=== PATIENT | female | born 1975 | race American Indian/Alaskan Native ===

== ENCOUNTER 2018-11-08 22:33 | Outpatient (CLI) | payer MEDICAID ==
[2018-11-09] MEDS ORDERED: LACTATED RINGERS 1,000 ML IV ONE (02:21)
[2018-11-09 03:15] LABS: Bacteria,Urine 2+ /HPF (Negative); Bilirubin,Urine NEG (Negative); Blood,Urine NEG (Negative); Color,Urine Yellow (Yellow); Mucus,Urine FEW /HPF; Protein,Urine <15 mg/dL mg/dL (Negative); Urobilinogen,Urine < 2.0 mg/dL (<2.0)
--- NOTE | 2018-11-09 04:07 | Ultrasound Report ---
PROCEDURE: US OB BPP WO NON-STRESS TECHNIQUE: Transabdominal imaging was obtained for the biophysical profile. HISTORY: s/p fall COMPARISONS: None FINDINGS: For breathing movements, a score of 2 out of 2 was obtained. For movements, a score of 2 out of 2 was obtained. For posture and tone, a score of 2 out of 2 was obtained. Qualitative amniotic fluid volume, a score of 2 out of 2 was obtained. The heart rate is 131 BPM. IMPRESSION: Biophysical profile score of 8 out of 8. The heart rate is 131 BPM.. This document is electronically signed by Robert Mcclure MD., Nov 09 2018 04:05:32 AM ET
--- NOTE | 2018-11-09 04:10 | Ultrasound Report ---
PROCEDURE: US OB LIMITED TECHNIQUE: Routine transabdominal imaging was obtained the pelvis. HISTORY: s/p fall COMPARISONS: None FINDINGS: The fetus is in cephalic presentation. The heart rate is 131 BPM. The BIANKA is 13.4 cm which is n ormal. The placenta is anterior in position and is grade 1. There is no evidence of placental injury or abruption. There is possible thinning of the anterior wall of the uterus with the placenta is. The vessels appear slightly dilated. A placenta accreta cannot be excluded. IMPRESSION: No evidence of placental injury or abruption. Cephalic presentation. heart rate is 131 BPM. Normal BIANKA is 13.4 cm. Possible slight thinning of the anterior wall of the uterus. The placenta is. Slight prominent vessel s noted. Placenta accreta cannot be entirely ruled out. Follow-up study recommended.. This document is electronically signed by Robert Mcclure MD., Nov 09 2018 04:07:56 AM ET
[2018-11-09 04:48] VITALS: BP 114/56
== END 2018-11-09 04:55 | disposition home or self-care (01) ==
LOC: TRG 22:33
PROVIDERS: ATTEND Obstetrics & Gynecology
DX: O9A.213 Injury, poisoning and certain other consequences of external causes complicating pregnancy, third trimester (principal); S50.311A Abrasion of right elbow, initial encounter; S60.419A Abrasion of unspecified finger, initial encounter; F32.9 Major depressive disorder, single episode, unspecified; J45.909 Unspecified asthma, uncomplicated; Z3A.34 34 weeks gestation of pregnancy; Z87.891 Personal history of nicotine dependence; W10.9XXA Fall (on) (from) unspecified stairs and steps, initial encounter
CPT/HCPCS: 59025; 76815; 76819; 81001; 96360; J7120

== ENCOUNTER 2018-12-12 06:04 | Inpatient (IN) | payer MEDICAID ==
[2018-12-12 07:18] LABS: Hematocrit 38.9 % (30.3-42.9); Hemoglobin 13.1 gm/dl (10.1-14.3); Mean Corpuscular HGB Conc 34 % (30-34); Mean Corpuscular Volume 94 fl (79-97); Platelet Count 163 K/mm3 (140-440); Red Blood Count 4.13 M/mm3 (3.65-5.03); Red Cell Distribution Width 15.2 % (13.2-15.2)
[2018-12-12] MEDS ORDERED: REGLAN IV ONE (07:42)
[2018-12-12] MEDS ORDERED: BICITRA PO ONE (07:42)
[2018-12-12] MEDS ORDERED: PEPCID IV ONE (07:42)
[2018-12-12] MEDS ORDERED: ANCEF/STERILE WATER 2 GM/20 ML 2 GM/20 ML SYRINGE IV NR (08:00)
[2018-12-12] MEDS ORDERED: PITOCin/NS 20 UNIT/1000ML DRIP 20 UNITS/1,000 ML BAG IV SCH ×2 (08:00→14:00)
--- NOTE | 2018-12-12 08:17 | History and Physical Report ---
History of Present Illness Date of examination: 12/12/18 Date of admission: 12/12/18 06:04 Chief complaint: Scheduled Repeat C Section with BTL History of present illness: Pt is a 43yo BF EDC 12/19/18; EGA 39 0/7 weeks presents for Repeat C Section with BTL. She received care at [facility] since 11 weeks and co-managed by [facility] for AMA, hypertension and previous C Section x 2. A pelvic u/s done 11/08/18 showed a possible placenta accreta, but she could not tolerate the ordered MRI. records are available and GBS is negative. Past History Past Medical History: hypertension, lung disease, migraines, other (obesity; depression) Past Surgical History: cholecystectomy, section (x2) Family/Genetic History: diabetes, heart disease, hypertension, stroke, cancer Social history: no significant social history, single - Obstetrical History : 6 Medications and Allergies Allergies Allergy/AdvReac Type Severity Reaction Status Date / Time acetaminophen [From Percocet] Allergy Hives Verified 11/09/18 02:26 aspirin Allergy Hives Verified 11/09/18 02:26 codeine Allergy Nausea Verified 11/09/18 02:26 oxycodone [From Percocet] Allergy Hives Verified 11/09/18 02:26 Active Meds: Active Medications Oxytocin/Sodium Chloride (Pitocin/Ns 20 Unit/1000ml Drip) 20 units in 1,000 mls @ 0 mls/hr IV TITR JENNIFER Lactated Ringer's (Lactated Ringers) 1,000 mls @ 2,250 mls/hr IV PREOP JENNIFER Stop: 12/13/18 08:27 Cefazolin Sodium (Ancef/Sterile Water 2 Gm/20 Ml) 2 gm in 20 mls @ 80 mls/hr IV PREOP NR; Protocol Stop: 12/12/18 23:59 Review of Systems All systems: negative - Vital Signs Vital signs: Vital Signs Temp Pulse Resp BP Pulse Ox 98.3 F 98 H 18 135/73 97 12/12/18 06:40 12/12/18 06:40 12/12/18 06:40 12/12/18 06:40 12/12/18 06:40 Temp Pulse Resp BP Pulse Ox 98.3 F 84 18 135/73 94 12/12/18 06:40 12/12/18 07:33 12/12/18 06:40 12/12/18 06:40 12/12/18 07:33 - Physical Exam Breasts: Positive: deferred Cardiovascular: Regular rate Lungs: Positive: Clear to auscultation Abdomen: Positive: normal appearance Genitourinary (Female): Positive: normal external genitalia Uterus: Positive: enlarged Extremities: Positive: normal - Obstetrical FHR: category 1 Uterine Contraction Monitor Mode: External Uterine Contraction Pattern: Absent Results Result Diagrams: 12/12/18 06:40 All other labs normal. Ultrasound: report reviewed Assessment and Plan - Patient Problems (1) 39 weeks gestation of Onset Date: 12/12/18 Current Visit: Yes Status: Acute Plan to address problem: A: IUP @ 39 0/7 weeks Previous C Section x 2 Morbid obesity Chronic hypertension Desires permanent sterilization P: Admit to L&D for a Repeat C Section with BTL (2) Previous section complicating , antepartum condition or complication Onset Date: 12/12/18 Current Visit: Yes Status: Acute (3) Hypertension affecting in third trimester Onset Date: 12/12/18 Current Visit: Yes Status: Acute
[2018-12-12] MEDS: LACTATED RINGERS 1,000 ML IV SCH ×2 (08:51→11:10)
--- NOTE | 2018-12-12 08:51 | Anesthesia Consultation ---
Anesthesia Consult and Med Hx Date of service: 12/12/18 - Airway Anesthetic Teeth Evaluation: Good ROM Head & Neck: Adequate Mental/Hyoid Distance: Adequate Mallampati Class: Class II - Pulmonary Exam CTA: Yes - Pre-Operative Health Status ASA Pre-Surgery Classification: ASA2 - Pulmonary Hx Asthma: Yes (last asthma attack-08/2018) - Cardiovascular System Hx Hypertension: Yes - Central Nervous System Hx Seizures: No Hx Psychiatric Problems: Yes (clinical depression/PTSD) - Endocrine Hx Renal Disease: No Hx Hypothyroidism: No Hx Hyperthyroidism: No - Hematic Hx Anemia: No Hx Sickle Cell Disease: No - Other Systems Hx Alcohol Use: No
--- NOTE | 2018-12-12 08:51 | Anesthesia Day of Surgery ---
Anesthesia Day of Surgery - Day of Surgery Patient Examined: Yes Patient H&P Reviewed: Yes Patient is NPO: Yes (coffee w/milk @4:30 am)
[2018-12-12] MEDS ORDERED: ZOFRAN ONE (11:22)
[2018-12-12] MEDS ORDERED: SUBLIMAZE ONE (11:23)
[2018-12-12] MEDS ORDERED: ANCEF/STERILE WATER 2 GM/20 ML IV ONE (11:39)
[2018-12-12] MEDS ORDERED: TORADOL ONE (12:17)
[2018-12-12] MEDS ORDERED: BENADRYL ONE (12:17)
[2018-12-12] MEDS ORDERED: DILAUDID ONE (12:17)
--- NOTE | 2018-12-12 13:01 | Post Anesthesia Evaluation ---
- Post Anesthesia Evaluation Patient Participated: Yes Airway Patent: Yes Stable Respiratory Function: Yes Nausea/Vomiting: No Temp > 96.8F: Yes Pain Manageable: Yes Adequeate Hydration: Yes Anesthesia Complications: No Block Receding Appropriately: Yes Patient on Ventilator: No
[2018-12-12] MEDS ORDERED: NARCAN 0.4 MG/1 ML IV PRN ×2 (13:02→13:09)
[2018-12-12] MEDS ORDERED: PHENERGAN PR PRN (13:02)
[2018-12-12] MEDS ORDERED: PHENERGAN PO PRN (13:02)
[2018-12-12] MEDS ORDERED: MORPHINE IV PRN (13:02)
[2018-12-12] MEDS ORDERED: ZOFRAN IV PRN (13:02)
--- NOTE | 2018-12-12 13:02 | Operative Report ---
Operative Report Operative Report: Date of procedure: 12/12/2018 Pre-operative diagnosis: 1. Intrauterine at 39 0/7 weeks 2. Previo us 2 3. Chronic hypertension 4. Morbid obesity 5. Desires permanent sterilization Post-operative diagnosis: Same Procedure name(s): 1. Repeat low transverse section 2. Bilateral tubal ligation Surgeon: Kumar Jacinto MD Supervisor Print Line: None Anesthesia: Spinal anesthesia by Aquilino Davis CRNA EBL: 700 mL's Findings: A 3066 g female Apgars 8 at 1 minute 8 at 5 minutes. 2+ meconium fluid. Normal uterus. Normal tubes and ovaries bilaterally. Procedure: After the patient was prepped and draped in usual sterile fashion, and after satisfactory level of epidural anesthesia was obtained, the skin knife was used to make a transverse skin incision through the previous skin scars. The incision was excised down to layer of the fascia, which was nicked in the midline and extended laterally using the Bovie cautery. The rectus muscles were dissected off the rectus fascia both superiorly and inferiorly. The rectus bellies in the midline, and the peritoneum was entered under direct visualization. The peritoneal incision was extended superiorly and inferiorly. A bladder flap was created and the bladder blade was then placed. The uterus was scored in a curvilinear linear fashion, entered in the midline revealing 2+ meconium amniotic fluid. The 's head was delivered onto the surgical field, and the oropharynx and nasopharynx were bulb suctioned. The rest of the 's body was delivered, cord was doubly clamped and cut and the was handed to the waiting respiratory team. The placenta was manually removed from the uterus, and the uterus removed from its normal anatomical position. After gentle uterine lavage, the incision was inspected and found to be without extensions. It was then closed in 2 layers using 0 Vicryl suture in a running interlocking fashion, the second layer imbricating the first. At this point, attention was turned to the tubal ligation. First the right fallopian tube was grasped using the Orland, and after identifying the fimbriated end the right tube the Filshie clip was applied to the proximal portion of the tube. The same procedure was performed on the left fallopian tube. The tube was grasped using a Ashley, after first identifying the fimbriated end of the left fallopian tube, the Filshie clip was applied to the proximal portion of the tube. After good hemostasis was achieved, copious amounts or irrigation was performed, and the gutters were suctioned free of blood and blood clots. The Tisseel sealant was sprayed across the uterine incision. The uterus was then returned to its normal anatomical position, and after excellent hemostasis assured, the peritoneum was re-approximated using 3-0 Vicryl suture in a running interlocking fashion, and then the rectus muscles were re-approximated using 3-0 Vicryl suture in a [id number] configuration. The fascia was then re-approximated using 0 Vicryl suture in running interlocking fashion. The subcutaneous layer was made hemostatic using Bovie cautery, the Tisseel sealant was sprayed across the fascial incision and the skin edges re-approximated using 4-0 Vicryl suture in a sub-cuticular fashion. Patient tolerated the procedure well was transported to recovery in stable condition.
[2018-12-12] MEDS ORDERED: TUCKS PAD TP PRN (13:09)
[2018-12-12] MEDS ORDERED: LANSINOH TP PRN (13:09)
[2018-12-12] MEDS ORDERED: SENOKOT PO PRN (13:09)
[2018-12-12] MEDS ORDERED: TYLENOL PO PRN (13:09)
[2018-12-12] MEDS ORDERED: SODIUM CHLORIDE FLUSH SYRINGE 10 ML IV NR ×2 (14:00)
[2018-12-12] MEDS ORDERED: D5LR 1,000 ML IV SCH (14:00)
[2018-12-12] MEDS: DILAUDID IV PRN ×2 (15:16→23:11)
[2018-12-12] MEDS: TORADOL IV PRN (20:09)
[2018-12-12] MEDS: ANCEF/NS 1 GM/50 ML 1 GM/50 ML BAG IV SCH (20:11)
[2018-12-13 00:53] LABS: Hematocrit 36.2 % (30.3-42.9); Hemoglobin 12.2 gm/dl (10.1-14.3)
[2018-12-13] MEDS: ANCEF/NS 1 GM/50 ML 1 GM/50 ML BAG IV SCH (04:55)
[2018-12-13] MEDS: TORADOL IV PRN (04:55)
[2018-12-13] MEDS: NORMODYNE PO SCH ×3 (05:47→17:22)
[2018-12-13] MEDS ORDERED: BOOSTRIX IM ONE (06:00)
[2018-12-13] MEDS ORDERED: M-M-R II VACCINE SUB-Q ONE (06:00)
--- NOTE | 2018-12-13 09:47 | Progress Note ---
Assessment and Plan - Patient Problems (1) 39 weeks gestation of Onset Date: 12/12/18 Current Visit: Yes Status: Acute (2) Previous section complicating , antepartum condition or complication Onset Date: 12/12/18 Current Visit: Yes Status: Resolved (3) Hypertension affecting in third trimester Onset Date: 12/12/18 Current Visit: Yes Status: Resolved (4) Status post section Onset Date: 12/13/18 Current Visit: Yes Status: Resolved Plan to address problem: A: S/P Repeat C Section with BTL - POD #1 Doing well P: Continue RPOC Anticipate discharge in 24-48hrs Subjective - Subjective Date of service: 12/13/18 Principal diagnosis: s/p Repeat C Section with BTL - POD #1 Interval history: Pt is feeling well without complaints. Bleeding improved. Patient reports: appetite normal, voiding normally, pain well controlled, ambulating normally, no dizzy ambulation, no flatus, no nauseated [place]: doing well, nursing well Objective - Vital Signs Latest vital signs: Vital Signs Temp Pulse Resp BP BP Pulse Ox 12/13/18 08:42 98.3 F 65 18 124/68 98 12/13/18 05:47 94 H 107/55 12/13/18 04:55 18 12/13/18 04:31 98.0 F 79 18 133/70 96 12/13/18 00:12 98.0 F 80 20 128/62 95 12/12/18 23:11 18 12/12/18 20:09 18 12/12/18 19:50 98.0 F 94 H 20 107/55 97 12/12/18 15:25 98.4 F 77 18 122/78 99 12/12/18 14:15 98.8 F 88 24 147/84 96 12/12/18 14:00 65 16 159/81 97 12/12/18 13:45 64 17 154/70 98 12/12/18 13:30 66 17 149/77 96 12/12/18 13:15 65 15 144/80 97 12/12/18 13:10 60 15 148/71 97 12/12/18 13:06 66 15 156/77 97 12/12/18 12:57 98.2 F 79 19 134/53 97 Intake and Output 12/12/18 12/13/18 12/13/18 22:59 06:59 14:59 Intake Total 650 480 120 Output Total 550 900 Balance 100 -420 120 Intake: IV 50 ANCEF/NS 1 GM/50 ML 1 gm 50 In 50 ml @ 100 mls/hr IV [facility] Rx#:[id number] Oral 500 120 Intake, Free Water 100 480 Output: Urine 550 900 Indwelling Catheter 350 100 Uretheral (Muro) 200 400 Void 400 Other: Total, Intake Amount 200 120 Total, Output Amount 200 400 # Voids Indwelling Catheter 1 Estimated Blood Loss 700 - Exam Breasts: Present: deferred Abdomen: Present: normal appearance, soft Uterus: Present: normal, firm, fundal height below umbilicus Incision: Present: normal, dry, intact, dressed - Labs Labs: Abnormal lab results 12/12/18 Range/Units 06:40 Crossmatch See Detail Laboratory Tests 12/12/18 12/12/18 12/12/18 06:40 06:40 06:40 WBC 4.5 RBC 4.13 Hgb 13.1 Hct 38.9 MCV 94 MCH 32 MCHC 34 RDW 15.2 Plt Count 163 RPR Nonreactive Blood Type A POSITIVE Antibody Screen Negative Crossmatch See Detail 12/13/18 00:40 WBC RBC Hgb 12.2 Hct 36.2 MCV MCH MCHC RDW Plt Count RPR Blood Type Antibody Screen Crossmatch
[2018-12-13] MEDS: FEOSOL PO SCH (10:16)
[2018-12-13] MEDS: PRENATAL VITAMIN PO SCH (10:33)
[2018-12-13] MEDS: IBUPROFEN PO PRN ×2 (10:33→16:17)
[2018-12-13] MEDS: NORCO 5/325 PO PRN ×3 (10:47→22:44)
[2018-12-14] MEDS: NORCO 5/325 PO PRN ×3 (03:40→17:23)
[2018-12-14] MEDS: NORMODYNE PO SCH ×3 (03:40→22:23)
[2018-12-14] MEDS: MILK OF MAGNESIA PO PRN ×2 (03:46→19:02)
[2018-12-14] MEDS: IBUPROFEN PO PRN ×2 (07:57→17:26)
--- NOTE | 2018-12-14 09:15 | Progress Note ---
Assessment and Plan - Patient Problems (1) 39 weeks gestation of Onset Date: 12/12/18 Current Visit: Yes Status: Acute (2) Previous section complicating , antepartum condition or complication Onset Date: 12/12/18 Current Visit: Yes Status: Resolved (3) Hypertension affecting in third trimester Onset Date: 12/12/18 Current Visit: Yes Status: Resolved (4) Status post section Onset Date: 12/13/18 Current Visit: Yes Status: Resolved Plan to address problem: A: S/P Repeat C Section with BTL - POD #2 Doing well P: Encourage ambulation May go home tomorrow. Subjective - Subjective Date of service: 12/14/18 Principal diagnosis: s/p Repeat C Section with BTL - POD #2 Interval history: Pt is feeling well without complaints. She is tolerating a reg diet without nausea or vomiting, but states she has not passed gas yet. Patient reports: appetite normal, voiding normally, pain well controlled, ambulating normally, no dizzy ambulation, no flatus, no nauseated : doing well, nursing well Objective - Vital Signs Latest vital signs: Vital Signs Temp Pulse Resp BP BP Pulse Ox 12/14/18 03:40 82 18 132/70 12/13/18 23:25 98.5 F 89 20 128/68 100 12/13/18 22:44 18 12/13/18 17:22 68 153/56 12/13/18 17:11 98.2 F 89 16 153/56 97 12/13/18 14:55 79 136/75 12/13/18 12:31 98.0 F 85 16 125/65 95 12/13/18 10:46 68 124/68 Intake and Output 12/13/18 12/14/18 12/14/18 22:59 06:59 14:59 Intake Total 240 Balance 240 Intake: Oral 240 Other: Total, Intake Amount 240 # Voids Void 1 1 - Exam Abdomen: Present: normal appearance, soft Uterus: Present: normal, firm, fundal height below umbilicus Extremities: Present: normal Incision: Present: normal, dry, intact, dressed
[2018-12-14] MEDS: FEOSOL PO SCH (10:47)
[2018-12-14] MEDS: PRENATAL VITAMIN PO SCH (10:47)
[2018-12-14] MEDS: MYLICON PO PRN (19:01)
[2018-12-15] MEDS: IBUPROFEN PO PRN (05:28)
[2018-12-15] MEDS: NORCO 5/325 PO PRN (05:28)
[2018-12-15] MEDS: MILK OF MAGNESIA PO PRN (05:33)
[2018-12-15] MEDS: MYLICON PO PRN (07:59)
[2018-12-15] MEDS: FEOSOL PO SCH (09:30)
[2018-12-15] MEDS: NORMODYNE PO SCH (09:30)
[2018-12-15] MEDS: PRENATAL VITAMIN PO SCH (09:31)
--- NOTE | 2018-12-15 10:11 | Progress Note ---
Assessment and Plan - Patient Problems (1) 39 weeks gestation of Onset Date: 12/12/18 Current Visit: Yes Status: Acute (2) Previous section complicating , antepartum condition or complication Onset Date: 12/12/18 Current Visit: Yes Status: Resolved (3) Hypertension affecting in third trimester Onset Date: 12/12/18 Current Visit: Yes Status: Resolved (4) Status post section Onset Date: 12/13/18 Current Visit: Yes Status: Resolved Plan to address problem: A: S/P Repeat C Section with BTL - POD #3 Doing well P: May go home today Subjective - Subjective Date of service: 12/15/18 Principal diagnosis: s/p Repeat C Section with BTL - POD #3 Interval history: Pt is feeling well without complaints. She is tolerating a reg diet without nausea or vomiting, ambulating and voiding without difficulty. Patient reports: appetite normal, voiding normally, pain well controlled, flatus, bowel movement, ambulating normally, no dizzy ambulation, no nauseated [place]: doing well, nursing well Objective - Vital Signs Latest vital signs: Vital Signs Temp Pulse Resp BP BP Pulse Ox 12/15/18 09:30 64 139/62 12/15/18 07:57 97.7 F 64 15 139/62 98 12/15/18 06:28 18 12/15/18 05:28 18 12/15/18 00:00 98.2 F 64 18 128/63 99 12/14/18 22:23 76 122/53 12/14/18 19:00 18 12/14/18 10:47 90 122/70 Intake and Output 12/14/18 12/15/18 12/15/18 22:59 06:59 14:59 Intake Total 120 360 240 Balance 120 360 240 Intake: Oral 120 240 240 Intake, Free Water 120 Other: Total, Intake Amount 120 240 240 # Voids Void 1 1 - Exam Abdomen: Present: normal appearance, soft Uterus: Present: normal, firm, fundal height below umbilicus Extremities: Present: normal Incision: Present: normal, dry, intact - Labs Labs: Abnormal lab results 12/12/18 Range/Units 06:40 Crossmatch See Detail
--- NOTE | 2018-12-15 10:14 | Discharge Summary ---
Providers - Providers Date of Admission: 12/12/18 06:04 Date of discharge: 12/15/18 Attending physician: DONYA JACOBSON Primary care physician: DONYA JACOBSON Hospitalization Reason for admission: section, IUP at term, other (Previous c section; Chronic hypertension; Morbid obesity; Desires permanent sterilization) Delivery: Procedure: section, bilateral tubal ligation, repeat low transverse Episiotomy: none Laceration: none Incision: normal, dry, intact Other procedures: none complications: none Discharge diagnosis: IUP at term delivered baby: female Hospital course: Pt is a 43yo BF EDC 12/19/18; EGA 39 0/7 weeks who presented for a Repeat C Section with BTL. She received care at [facility] since 11 weeks and co-managed by [facility] for AMA, hypertension and previous C Section x 2. She underwent an uncomplicated Repeat C Section with BTL and tolerated the procedure well. By POD #3 she was tolerating a reg diet without nausea or vomiting, ambulating and voiding without difficulty. She was therefore discharged to home on POD #3 in stable condition. Condition at discharge: Good Disposition: DC-01 TO HOME OR SELFCARE - Discharge Diagnoses (1) 39 weeks gestation of Status: Resolved (2) Previous section complicating , antepartum condition or complication Status: Resolved (3) Hypertension affecting in third trimester Status: Resolved Plan - Discharge Medications Prescriptions: Ferrous Sulfate [Feosol 325 MG tab] 325 mg PO BID #60 tablet Labetalol [Labetalol 100mg TAB] 100 mg PO BID #60 tablet Ibuprofen [Motrin 800 MG tab] 800 mg PO Q6H PRN #30 tablet PRN Reason: Pain, Mild (1-3) HYDROcodone/APAP 5-325 [Dawson 5-325 mg TAB] 1 each PO Q6HR PRN #30 tablet PRN Reason: Pain, Moderate (4-6) Vit-Fe Fumar-FA [ Vitamin] 1 each PO QDAY #30 tablet - Provider Discharge Summary Activity: routine, no sex for 6 weeks, no heavy lifting 4 weeks, no strenuous exercise Diet: routine Instructions: routine Additional instructions: [] Smoking cessation referral if applicable(refer to patient education folder for contact #) [] Refer to [facility]'s [facility] Booklet Call your doctor immediately for: * Fever > 100.5 * Heavy vaginal bleeding ( >1 pad per hour) * Severe persistent headache * Shortness of breath * Reddened, hot, painful area to leg or breast * Drainage or odor from incision. * Keep incision clean and dry at all times and follow doctor's instructions regarding bathing/showering - Follow up plan Follow up: DONYA JACOBSON MD [Primary Care Provider] - 14 Days MICAELA WELCH CNM [Advanced Practice Nurse] - 14 Days
[2018-12-15 14:57] VITALS: BP 132/44
== END 2018-12-15 15:30 | disposition home or self-care (01) | DRG 765 ==
LOC: APU 06:04 → OB 14:46
PROVIDERS: ADMIT Obstetrics & Gynecology; ATTEND Obstetrics & Gynecology
PROC: 10D00Z1 Extraction of Products of Conception, Low, Open Approach (ICD-10-PCS; principal; 2018-12-12)
PROC: 0UL70CZ Occlusion of Bilateral Fallopian Tubes with Extraluminal Device, Open Approach (ICD-10-PCS; 2018-12-12)
DX: O34.211 Maternal care for low transverse scar from previous cesarean delivery (principal); O99.354 Diseases of the nervous system complicating childbirth; O10.92 Unspecified pre-existing hypertension complicating childbirth; O99.214 Obesity complicating childbirth; O77.0 Labor and delivery complicated by meconium in amniotic fluid; O99.52 Diseases of the respiratory system complicating childbirth; E66.01 Morbid (severe) obesity due to excess calories; G43.909 Migraine, unspecified, not intractable, without status migrainosus; J45.909 Unspecified asthma, uncomplicated; Z3A.39 39 weeks gestation of pregnancy; Z37.0 Single live birth
CPT/HCPCS: 36415; 85014; 85018; 85027; 86592; 86850; 86900; 86901; 86920; G0378; C9250; J0690; J1170; J1200; J1885; J2405; J2590; J2765; J3010; J7120

== ENCOUNTER 2019-07-18 10:28 | Observation (INO) | payer MEDICAID ==
[2019-07-13 13:56] LABS: Eosinophils # (Auto) 0.1 K/mm3 (0.0-0.4); Eosinophils % (Auto) 2.1 % (0.0-4.3); Hematocrit 43.7 % (30.3-42.9); Hemoglobin 14.8 gm/dl (10.1-14.3); Lymphocytes # (Auto) 1.1 K/mm3 (1.2-5.4); Lymphocytes % (Auto) 23.6 % (13.4-35.0); Mean Corpuscular HGB Conc 34 % (30-34); Mean Corpuscular Volume 89 fl (79-97); Monocytes # (Auto) 0.2 K/mm3 (0.0-0.8); Monocytes % (Auto) 3.4 % (0.0-7.3); Platelet Count 215 K/mm3 (140-440); Red Blood Count 4.94 M/mm3 (3.65-5.03); Red Cell Distribution Width 13.2 % (13.2-15.2)
--- NOTE | 2019-07-13 14:10 | Anesthesia Consultation ---
Anesthesia Consult and Med Hx Date of service: 07/13/19 - Airway Anesthetic Teeth Evaluation: Good, Crowns ROM Head & Neck: Adequate Mental/Hyoid Distance: Adequate Mallampati Class: Class II Intubation Access Assessment: Good - Pre-Operative Health Status ASA Pre-Surgery Classification: ASA2 Proposed Anesthetic Plan: General Nerve Block: TAP - Pulmonary Hx Smoking: Yes (former) Hx Asthma: Yes (Last treated 8 mos ago) COPD: No Hx Pneumonia: No - Cardiovascular System Hx Hypertension: Yes (Previously on meds, under control without meds now) Hx Cardia Arrhythmia: Yes (Hx SVT. Ablation in 2008) - Central Nervous System Hx Neuromuscular Disorder: Yes (Migraines) Hx Seizures: Yes (x2 years ago, never determined why) Hx Back Pain: Yes (DDD. Fibromyalgia) Hx Psychiatric Problems: Yes (Depression) - Gastrointestinal Hx Gastroesophageal Reflux Disease: Yes (+IBS) - Endocrine Hx Renal Disease: No Hx End Stage Renal Disease: No Hx Hypothyroidism: No Hx Hyperthyroidism: No - Hematic Hx Anemia: Yes (Past hx) Hx Sickle Cell Disease: No - Other Systems Hx Alcohol Use: No Hx Cancer: No - Additional Comments Anesthesia Medical History Comments: PONV. Last delivery ; Pt is
[~2019-07-18 10:28] MED LIST: GABAPENTIN 300 MG CAP PO NR; LACTATED RINGERS 1,000 ML IV SCH; LIDOCAINE MPF (2%) 20 MG/1 ML VIAL 5 ML ONE; MIDAZOLAM 2 MG/2 ML INJ IV NR; NEOMY 40 MG/POLYMYXIN B 200,000 UNITS/ML (GU) AMPULE IR ONE; ONDANSETRON 4 MG/2 ML INJ ONE; PROPOFOL 200 MG/20 ML VIAL IV ONE; SCOPOLAMINE TRANSDERMAL PATCH 72 HR TD NR; fentaNYL 100 MCG/2 ML INJ IV ONE; fentaNYL 100 MCG/2 ML INJ ONE
[2019-07-18] MEDS ORDERED: LIDOCAINE (1%) 10 MG/1 ML VIAL 20 ML MDV ONE (10:43)
[2019-07-18] MEDS ORDERED: BUPIVACAINE-EPINEPHRINE/PF 0.25%-1:200,000 (30 ML) VIAL INFILTRATI ONE (10:43)
[2019-07-18] MEDS ORDERED: dexAMETHasone 4 MG/ML VIAL ONE (10:43)
[2019-07-18] MEDS ORDERED: ONDANSETRON 4 MG/2 ML INJ ONE (10:52)
--- NOTE | 2019-07-18 11:07 | History and Physical Report ---
History of Present Illness Date of examination: 07/18/19 Chief complaint: Prolonged vaginal bleeding History of present illness: Pt is a 44yo BF LMP 06/25/19 presents for surgical evaluation and treatment of Adenomyosis. Pelvic u/s showed the uterus to measure 8 x 6 x 4.5cm with microcalcifications. She desires a Robotic Assisted Total Hysterectomy with ovarian conservation. Past History Past Medical History: asthma, hypertension Past Surgical History: cholecystectomy, section, D&C Family/Genetic History: none Social history: no significant social history, single. denies: smoking - Obstetrical History : 6 Medications and Allergies Allergies Allergy/AdvReac Type Severity Reaction Status Date / Time acetaminophen [From Percocet] Allergy Hives Verified 11/09/18 02:26 aspirin Allergy Hives Verified 11/09/18 02:26 codeine Allergy Nausea Verified 11/09/18 02:26 oxycodone [From Percocet] Allergy Hives Verified 11/09/18 02:26 Home Medications Medication Instructions Recorded Confirmed Last Taken Type Loratadine 1 tab PO DAILY 12/13/18 07/11/19 12/11/18 22:00 History Pantoprazole [Protonix] 40 mg PO DAILY 12/13/18 07/18/19 07/18/19 08:00 History Vitamin 1 tab PO DAILY 12/13/18 07/11/19 12/11/18 22:00 History Sertraline [Zoloft] 200 mg PO QDAY 12/13/18 07/18/19 07/17/19 09:00 History valACYclovir [Valtrex] 1 tab PO DAILY PRN 12/13/18 07/18/19 07/17/19 09:00 History Active Meds: Active Medications Gabapentin (Gabapentin) 600 mg PO PREOP NR Stop: 07/18/19 13:00 Lactated Ringer's (Lactated Ringers) 1,000 mls @ 100 mls/hr IV DIRECT JENNIFER Cefazolin Sodium (Ancef/Sterile Water 2 Gm/20 Ml) 2 gm in 20 mls @ 80 mls/hr IV PREOP NR; Protocol Midazolam HCl (Versed) 2 mg IV PREOP NR Stop: 07/18/19 23:59 Scopolamine (Transderm-Scop) 1 each TD PREOP NR Stop: 07/18/19 23:00 Review of Systems All systems: negative - Vital Signs Vital signs: Vital Signs Temp Pulse Resp BP Pulse Ox 98.3 F 90 20 144/65 99 07/13/19 13:30 07/13/19 13:30 07/13/19 13:30 07/13/19 13:30 07/13/19 13:30 Temp Pulse Resp BP Pulse Ox 98.3 F 90 20 144/65 99 07/13/19 13:30 07/13/19 13:30 07/13/19 13:30 07/13/19 13:30 07/13/19 13:30 - Physical Exam Breasts: Positive: deferred Cardiovascular: Regular rate Lungs: Positive: Clear to auscultation Abdomen: Positive: normal appearance Genitourinary (Female): Positive: normal external genitalia Vagina: Positive: normal moisture Uterus: Positive: normal size Extremities: Positive: normal Results Result Diagrams: 07/13/19 13:40 All other labs normal. Ultrasound: report reviewed Assessment and Plan - Patient Problems (1) Adenomyosis of uterus Onset Date: 07/18/19 Current Visit: Yes Status: Acute Plan to address problem: A: Adenomyosis P: Admit for a Robotic Assisted Total Hysterectomy with Bilateral Salpingectomy
[2019-07-18] MEDS ORDERED: fentaNYL 100 MCG/2 ML INJ ONE (11:13)
[2019-07-18] MEDS ORDERED: MAGNESIUM OXIDE 400 MG TAB PO SCH (11:13)
--- NOTE | 2019-07-18 11:15 | Anesthesia Day of Surgery ---
Anesthesia Day of Surgery - Day of Surgery Patient Examined: Yes Patient H&P Reviewed: Yes Patient is NPO: Yes
[2019-07-18] MEDS ORDERED: ACETAMINOPHEN 500 MG TAB PO SCH (11:18)
[2019-07-18] MEDS ORDERED: MAGNESIUM OXIDE 400 MG TAB PO ONE (11:20)
[2019-07-18] MEDS ORDERED: CELECOXIB 200 MG CAP ONE (11:21)
[2019-07-18] MEDS ORDERED: ROCURONIUM 50 MG/5 ML INJ IV ONE (11:48)
[2019-07-18] MEDS ORDERED: CELECOXIB 200 MG CAP PO NR (12:00)
[2019-07-18] MEDS ORDERED: ceFAZolin/Water 2 GM/20 ML 2 GM/20 ML SYRINGE IV NR (12:00)
[2019-07-18] MEDS ORDERED: ONDANSETRON 4 MG/2 ML INJ IV PRN (13:53)
[2019-07-18] MEDS ORDERED: HYDROcodone/ACETAMINOPHEN 5-325 MG TAB PO PRN (13:53)
[2019-07-18] MEDS ORDERED: MAGNESIUM HYDROXIDE (MOM) ORAL LIQD UDC PO PRN (13:53)
--- NOTE | 2019-07-18 13:53 | Operative Report ---
Operative Report Operative Report: Pre-operative diagnosis: 1. Adenomyosis 2. Menorrhagia Post-operative diagnosis: Same Procedure : 1. Robotic-assisted total hysterectomy 2. Bilateral salpingectomy Surgeon: Kumar Jacinto MD Utilization Coordinator: [employer] Anesthesia: MIKE Block followed by general endotracheal intubation EBL: <100 mL's Findings: A 10 -12 weeks size myomatous uterus. Fallopian tubes showed evidence of previous tubal ligation bilaterally and normal ovaries bilaterally. Procedure: After the patient was first correctly identified, she was prepped and draped in the usual sterile fashion and placed in the dorsolithotomy position. The bladder was first catheterized using Muro catheter and the speculum was placed in the vagina and the anterior lip of the cervix was grasped using a single-tooth tenaculum, and the small Vesicare cup was placed. The tenaculum and speculum was then removed from the vagina and attention was then turned to the abdomen. The skin knife was used to make a small incision approximately 5 cm above the umbilicus through which a 12 mm trocar was placed under direct visualization. After adequate amount of abdominal insufflation, visualization of the pelvic organs found the uterus to be enlarged, the fallopian tubes showed evidence of previous tubal ligation bilaterally with Filsche clips, and the ovaries were normal bilaterally. A right and left paramedian incision was made through which the 8 mm trochars were placed under direct visualization and a 5 mm trocar was placed in the right lower quadrant. The patient was then placed in steep Trendelenburg positioning and the robot was docked on the patient's left side. After all the robotic ports were connected and adequate functioning of the robotic arms were tested, the surgeon then proceeded to the console to begin the hysterectomy. First the left round ligament was grasped, cauterized and cut, the left utero- ovarian ligament was grasped, cauterized and cut, and the left fallopian tube also grasped, cauterized and cut along the mesosalpinx, thus freeing the left ovary from the left uterine sidewall. The same procedure was performed on the right. The right round ligament was grasped, cauterized and cut, the right utero-ovarian ligament was grasped, cauterized and cut, and the right fallopian tube also grasped, cauterized and cut along the mesosalpinx, thus freeing the right ovary from the right uterine sidewall. The bladder flap was taken down anteriorly and the uterine vessels were grasped, cauterized and cut bilaterally. The cardinal ligaments were sequentially grasped, cauterized and cut down to the level of the uterosacral ligaments. At this time the posterior colpotomy was performed over the Vcare cup, and the cervix was circumscribed beginning posteriorly and meeting anteriorly until the cervix was freed. The cervix, uterus and fallopian tubes were then removed through the vagina and sent to pathology. The vaginal cuff was then closed using 2-0 Vloc suture in a running fashion. Irrigation was then performed and after good hemostasis was achieved the procedure was considered complete. The Tisseel sealant was then sprayed across the vaginal cuff site, and after excellent hemostasis was assured, Interceed was placed across the vaginal cuff site. The abdominal pressure was reduced to 8 mmHg and excellent hemostasis was assured. All instruments were then removed from the abdominal cavity. Each incision was closed using 0 Vicryl suture in a [id number] configuration on the fascia followed by 4-0 Monocryl suture in a sub-cuticular fashion on the skin. Each incision was also infiltrated using 0.5% Marcaine solution. The vaginal pack was removed. The patient tolerated the procedure well and was transported to the recovery room in stable condition.
[2019-07-18] MEDS ORDERED: NEOMY 40 MG/POLYMYXIN B 200,000 UNITS/ML (GU) AMPULE IR ONE (13:55)
[2019-07-18] MEDS ORDERED: SODIUM CHLORIDE 0.9% IRR 1,500 ML BOTTLE IR ONE (13:55)
[2019-07-18] MEDS ORDERED: SODIUM CHLORIDE 0.9% IRRIG SOLN 2000 ML IR ONE (13:55)
[2019-07-18] MEDS ORDERED: D5W/LACTATED RINGERS 1,000 ML IV SCH (14:00)
[2019-07-18] MEDS: KETOROLAC 30 MG/1 ML INJ IV SCH ×2 (14:35→19:40)
[2019-07-18] MEDS: HYDROmorphone 1 MG/1 ML INJ IV PRN ×2 (14:51→15:00)
[2019-07-18] MEDS: HYDROmorphone 2 MG TAB PO PRN (16:44)
[2019-07-18] MEDS: ceFAZolin/NS 1 GM/50 ML 1 GM/50 ML BAG IV SCH (20:38)
[2019-07-19] MEDS: KETOROLAC 30 MG/1 ML INJ IV SCH ×2 (01:44→11:50)
[2019-07-19] MEDS: ceFAZolin/NS 1 GM/50 ML 1 GM/50 ML BAG IV SCH (03:33)
[2019-07-19] MEDS: HYDROmorphone 2 MG TAB PO PRN (05:26)
[2019-07-19 05:40] LABS: Hematocrit 39.9 % (30.3-42.9); Hemoglobin 13.5 gm/dl (10.1-14.3)
--- NOTE | 2019-07-19 09:45 | Progress Note ---
Assessment and Plan - Patient Problems (1) Adenomyosis of uterus Onset Date: 07/18/19 Current Visit: Yes Status: Resolved (2) Status post robot-assisted surgical procedure Onset Date: 07/19/19 Current Visit: Yes Status: Resolved Plan to address problem: A: S/P RATH - POD #1 Doing well P: May go home today. Subjective - Subjective Date of service: 07/19/19 Principal diagnosis: s/p RATH - POD #1 Interval history: Pt is s/p a Robotic Assisted Total Hysterectomy with Bilateral Salpingectomy, and feeling well. She is tolerating a reg diet without nausea or vomiting, ambulating and voiding without difficulty. Patient reports: appetite normal, voiding normally, pain well controlled, flatus, ambulating normally, no dizzy ambulation, no nauseated Objective - Vital Signs Latest vital signs: Vital Signs Temp Pulse Resp BP BP Pulse Ox 07/19/19 07:42 98.2 F 67 18 117/52 93 07/19/19 04:00 98.6 F 74 18 119/68 07/19/19 00:00 98 F 78 16 108/78 07/18/19 20:00 98.8 F 88 18 119/73 07/18/19 15:39 83 140/68 97 07/18/19 15:15 97.9 F 79 18 144/71 97 07/18/19 15:00 18 07/18/19 14:51 23 07/18/19 14:49 23 07/18/19 14:45 85 21 150/66 97 07/18/19 14:35 23 07/18/19 14:30 94 H 22 139/68 98 07/18/19 14:20 82 20 152/55 100 07/18/19 14:15 81 22 148/69 100 07/18/19 14:10 82 21 148/67 100 07/18/19 14:05 82 20 135/61 100 07/18/19 14:00 88 20 143/65 99 07/18/19 13:57 98.2 F 85 16 139/65 100 07/18/19 12:00 14 07/18/19 11:51 70 16 133/71 97 07/18/19 11:41 69 18 139/72 96 07/18/19 11:36 68 13 130/58 96 07/18/19 11:30 68 14 134/54 97 07/18/19 11:24 64 16 140/71 97 07/18/19 11:05 98.3 F 62 18 137/98 98 07/18/19 11:00 16 07/18/19 10:35 98.3 F 62 18 137/98 98 Intake and Output 07/18/19 07/19/19 07/19/19 22:59 06:59 14:59 Intake Total 50 500 Output Total 75 1700 Balance -25 -1200 Intake: IV 50 ANCEF/NS 1 GM/50 ML 1 gm 50 In 50 ml @ 100 mls/hr IV Q8H [facility] Rx#:[id number] Oral 200 Intake, Free Water 300 Output: Urine 75 1700 Indwelling Catheter 1700 Other: Total, Intake Amount 200 Total, Output Amount 800 Voiding Method Indwelling Catheter # Voids Indwelling Catheter 325 - Exam Abdomen: Present: normal appearance, soft Extremities: Present: normal Incision: Present: normal, dry, intact - Labs Labs: Laboratory Tests 07/13/19 07/13/19 07/18/19 13:40 13:40 10:50 WBC 4.6 RBC 4.94 Hgb 14.8 H Hct 43.7 H MCV 89 MCH 30 MCHC 34 RDW 13.2 Plt Count 215 Lymph % (Auto) 23.6 Pratt % (Auto) 3.4 Eos % (Auto) 2.1 Baso % (Auto) 1.0 Lymph # 1.1 L Pratt # 0.2 Eos # 0.1 Baso # 0.0 Seg Neutrophils % 69.9 Seg Neutrophils # 3.2 HCG, Qual Negative Blood Type A POSITIVE Antibody Screen Negative 07/19/19 05:26 WBC RBC Hgb 13.5 Hct 39.9 MCV MCH MCHC RDW Plt Count Lymph % (Auto) Pratt % (Auto) Eos % (Auto) Baso % (Auto) Lymph # Pratt # Eos # Baso # Seg Neutrophils % Seg Neutrophils # HCG, Qual Blood Type Antibody Screen
--- NOTE | 2019-07-19 10:47 | Discharge Summary ---
Providers - Providers Date of Admission: 07/18/19 13:54 Date of discharge: 07/19/19 Attending physician: DONYA JACOBSON Primary care physician: ALISSA HARRIS Hospitalization Reason for admission: other (Pelvic pain; Adenomyosis) Procedure: other (Robotic Assisted Total Hysterectomy with Bilateral Salpingectomy) Laceration: none Incision: normal, dry, intact Other procedures: none complications: none Discharge diagnosis: other (s/p RATH) Hospital course: Pt is a 44yo BF LMP 06/25/19 who presented for surgical evaluation and treatment of Adenomyosis. Pelvic u/s showed the uterus to measure 8 x 6 x 4.5cm with microcalcifications. She underwent an uncomplicated Robotic Assisted Total Hysterectomy with Bilateral Salpingectomy, and by POD #1 she was tolerating a reg diet without nausea or vomiting, ambulating and voiding without difficulty. She was therefore discharged to home on POD #1 in stable condition. Condition at discharge: Good Disposition: DC-01 TO HOME OR SELFCARE - Discharge Diagnoses (1) Adenomyosis of uterus Status: Resolved Plan - Discharge Medications Prescriptions: Ibuprofen [Motrin] 800 mg PO Q8HR PRN #30 tablet PRN Reason: Pain, Mild (1-3) HYDROcodone/APAP 5-325 [[place] 5-325 mg TAB] 1 each PO Q6HR PRN #30 tablet PRN Reason: Pain, Moderate (4-6) - Provider Discharge Summary Activity: routine, no sex for 6 weeks, no heavy lifting 4 weeks, no strenuous exercise Diet: routine Instructions: routine Additional instructions: [] Smoking cessation referral if applicable(refer to patient education folder for contact #) [] Refer to [facility] Book[facility] Call your doctor immediately for: * Fever > 100.5 * Heavy vaginal bleeding ( >1 pad per hour) * Severe persistent headache * Shortness of breath * Reddened, hot, painful area to leg or breast * Drainage or odor from incision. * Keep incision clean and dry at all times and follow doctor's instructions regarding bathing/showering - Follow up plan Follow up: ALISSA HARRIS MD [Primary Care Provider] - 7 Days DONYA JACOBSON MD [Staff Physician] - 14 Days
[2019-07-19 14:04] VITALS: BP 136/70
== END 2019-07-19 16:25 | disposition home or self-care (01) ==
LOC: OR 10:28 → OB 13:54
PROVIDERS: ADMIT Obstetrics & Gynecology; ATTEND Obstetrics & Gynecology
DX: N80.0 Endometriosis of uterus (principal); N93.9 Abnormal uterine and vaginal bleeding, unspecified; J45.909 Unspecified asthma, uncomplicated; I10 Essential (primary) hypertension; Z79.899 Other long term (current) drug therapy; Z88.6 Allergy status to analgesic agent; Z88.5 Allergy status to narcotic agent; Z88.8 Allergy status to other drugs, medicaments and biological substances
CPT/HCPCS: 36415; 58571; 64450; 84703; 85014; 85018; 85025; 86850; 86900; 86901; 88309; 88342; 96365; 96366; 96375; 96376; A4217; C1765; C9250; G0378; J0690; J1100; J1170; J1885; J2250; J2405; J2704; J3010; J7120; J7121; S2900